=== PATIENT | female | born 1985 | race American Indian/Alaskan Native ===

== ENCOUNTER 2017-03-31 13:58 | Outpatient (CLI) | payer OTHER ==
--- NOTE | 2017-03-31 16:12 | Ultrasound Report ---
BILATERAL DIGITAL DIAGNOSTIC MAMMOGRAM with CAD and BILATERAL BREAST ULTRASOUND: 03/31/17 15:00:00 CLINICAL: 31-year-old with a right breast lump between 8 o'clock and [address] Melo. COMPARISON:None. These are baseline studies. FINDINGS: The breasts are heterogeneously dense, which may obscure small masses and the density is sufficient to limit the sensitivity of mammography.Left inner asymmetry on the CC view demonstrates satisfactory effacement with spot compression. The right breast is negative. Ultrasound of the right breast (including all four quadrants and the retroareolar area) was performed and demonstrated normal structures except for an oval smooth complex cyst versus solid nodule at 1 o'clock 5 cm from the nipple. It measures 7 x 4 x 3 mm. Ultrasound of the left breast (including all four quadrants and the retroareolar area) was performed and demonstrated normal fibroglandular and fatty structures. No mass, cyst or shadowing. IMPRESSION: A probably benign 7 mm right complex cyst versus solid nodule at 1 o'clock. The right breast is otherwise negative. Negative left breast. BI-RADS CATEGORY: 3 - - Probably Benign RECOMMENDATION: Six month followup right breast ultrasound. ACR BI-RADS MAMMOGRAPHIC CODES: 0 = Needs additional imaging evaluation; 1 = Negative; 2 = Benign; 3 = Probably benign; 4 = Suspicious; 5 = Malignant; 6 = Known biopsy-proven malignancy COMMENT: 1. Dense breast tissue, i.e., adenosis, fibrocystic changes, etc., may obscure an underlying neoplasm. 2. Approximately 10% of cancers are not detected with mammography. 3. A negative mammography report should not delay biopsy if a clinically suspicious mass is present. COMMENT: Patient follow-up letters are generated by our [employer] application.
== END 2017-03-31 13:59 | disposition home or self-care (01) ==
LOC: MAMMO 13:58
PROVIDERS: ATTEND Obstetrics & Gynecology Gynecology
DX: N63.0 Unspecified lump in unspecified breast (principal); R92.8 Other abnormal and inconclusive findings on diagnostic imaging of breast
CPT/HCPCS: 77066